=== PATIENT | female | born 1945 | race Caucasian/White ===

== ENCOUNTER 2016-09-10 10:22 | Outpatient (CLI) | payer OTHER ==
--- NOTE | 2016-09-10 13:42 | Diagnostic Imaging Report ---
VIKTORIYA MASCORRO [facility] [address] [facility] [address] [place] [address]. [id number] Report Submission Date: Sep 10, 2016 11:55:59 AM CDT Patient Study Name: JOAN BUTTERFIELD Date: Sep 10, 2016 10:32:42 AM CDT Modality Type: CT\SR Gender: F Description: CT BRAIN W/O CONTRAST : 47 Institution: [facility] Physician: VIKTORIYA MASCORRO Examination: CT head without contrast History: the headaches Comparison exam: None available Technique: Noncontrast head CT protocol. Findings: Ventricles and sulci are prominent, though consistent for patient age. Cerebrocerebellar parenchyma demonstrates periventricular low attenuation consistent with small vessel disease. No evidence for parenchymal hemorrhage. No evidence for mass or mass effect. No midline shift. No extra axial fluid collections. Partial visualization of the paranasal sinuses, mastoid air cells, orbits, skull and scalp without gross regularity. Falx calcifications. Pineal gland calcifications Impression: Age related changes. No acute parenchymal process. No hemorrhage. Electronically signed on Sep 10, 2016 11:55:59 AM CDT by: Jeff VERA
--- NOTE | 2016-09-10 13:43 | Diagnostic Imaging Report ---
VIKTORIYA MASCORRO [facility] [address] [facility].[address] [id number] Report Submission Date: Sep 10, 2016 12:58:51 PM CDT Patient Study Name: JOAN BUTTERFIELD Date: Sep 10, 2016 11:03:18 AM CDT Modality Type: US Gender: F Description: TRANSVAGINAL PELVIS : 47 Institution: [facility] Physician: VIKTORIYA MASCORRO Examination: Ultrasound pelvis History: Pelvic discomfort Comparison exams: None available Findings: Uterus measures 4.7 x 1.8 x 3.6 cm. Myometrium without gross irregularity. Endometrial complex measures 3.4 mm. Ovaries not visualized. No adnexal mass identified. Impression: No evidence for pelvic mass. No endometrial or myometrium abnormality Electronically signed on Sep 10, 2016 12:58:51 PM CDT by: Jeff VERA
--- NOTE | 2016-09-10 13:43 | Diagnostic Imaging Report ---
VIKTORIYA MASCORRO [facility] [address] [facility].[address] [id number] Report Submission Date: Sep 10, 2016 12:27:49 PM CDT Patient Study Name: JOAN BUTTERFIELD Date: Sep 10, 2016 10:43:53 AM CDT Modality Type: US Gender: F Description: DPLX SCN XTRCRAN ART CMP KYUNG : 47 Institution: [facility] Physician: VIKTORIYA MASCORRO Examination: Carotid artery ultrasound History: Syncope Comparison exams: None available Findings: Right carotid: Common carotid artery peak systolic velocity 131.9 cm/s; end diastolic velocity 21.0 cm/s. Internal carotid artery peak systolic velocity 89.9 cm/s; end diastolic velocity 29.3 cm/s. External carotid artery velocity to 225.8 cm/s. Vertebral artery velocity 51.0 cm/s Vertebral flow antegrade. Normal waveforms. No occlusive plaquing. Left carotid: Common carotid artery peak systolic velocity 122.0 cm/s; end diastolic velocity 29.8 cm/s. Internal carotid artery peak systolic velocity 136.3 cm/s; end diastolic velocity 55.5 cm/s. External carotid artery velocity to 125.8 cm/s. Vertebral artery velocity 39.1 cm/s Vertebral flow antegrade. Normal waveforms. No occlusive plaquing. Right ICA/CCA Ratio: 0.7 Left ICA/CCA Ratio 1.1 Impression: Carotids ratios not elevated. No restriction to hemodynamic flow. Electronically signed on Sep 10, 2016 12:27:49 PM CDT by: Jeff VERA
== END 2016-09-10 13:03 ==
LOC: RAD 10:22
PROVIDERS: ATTEND Family Medicine
DX: D25.9 Leiomyoma of uterus, unspecified (principal); R51 Headache; G45.9 Transient cerebral ischemic attack, unspecified
CPT/HCPCS: 70450; 76830; 93880

== ENCOUNTER 2018-01-27 10:15 | Emergency (ER) | payer OTHER ==
--- NOTE | 2018-01-27 10:25 | ED Physician Documentation ---
General Adult - HISTORIAN Historian: patient - HPI Stated Complaint: left wrist pain after fall 4 days ago Chief Complaint: Upper Extremity Injury Onset: days ago (4) Timing: still present Severity: mild Further Comments: yes (She reports she fell down and she notes swelling in her wrist and hand . she has redness and warmth to the area. She is able to use her hand. Swelling does decrease with use of ice. She has tried OTC meds. She denies any other complaints today) Last known Well Code/Unknown Code: Unknown - ROS CONST: no problems EYES/ENT: none GI/: none - PAST HX Past History: COPD Immunizations: referred to PCP Allergies/Adverse Reactions: Allergies Allergy/AdvReac Type Severity Reaction Status Date / Time No Known Drug Allergies Allergy Unverified 01/27/18 10:42 Home Medications: Ambulatory Orders Medication Instructions Recorded Gabapentin [Neurontin] 300 mg PO TID 01/27/18 - SOCIAL HX Smoking History: cigarettes Alcohol Use: none Drug Use: none - FAMILY HX Family History: No - REVIEWED ASSESSMENTS Nursing Assessment Reviewed: Yes Vitals Reviewed: Yes General Adult Physical Exam - PHYSICAL EXAM GENERAL APPEARANCE: no distress EENT: eye inspection normal NECK: normal inspection RESPIRATORY: no resp distress, chest non-tender CVS: reg rate & rhythm, heart sounds normal, equal pulses, no murmur ABDOMEN: soft, no distension BACK: normal inspection SKIN: warm/dry, normal color EXTREMITIES: non-tender, normal range of motion, edema (left wrist with mild swelling. Full ROM Pulses + sensation + ) NEURO: oriented X3, CN's nml as tested, motor nml, sensation nml, mood/affect nm l, cognition normal Discharge Clincal Impression: Left wrist pain Referrals: Vivek Bragg MD [Primary Care Provider] - 2 Days Disposition: AGAINST MEDICAL ADVICE Decision to Admit: NO Date of Decison to Admit: 01/27/18 Decision Time: 10:51
== END 2018-01-27 10:51 | disposition left against medical advice (07) ==
LOC: ED 10:15
DX: M25.532 Pain in left wrist (principal); Z53.9 Procedure and treatment not carried out, unspecified reason
CPT/HCPCS: 99282